=== PATIENT | male | born 1940 | race Caucasian/White ===

== ENCOUNTER 2023-11-08 13:34 | Outpatient (RCR) | payer MEDICARE, OTHER, SELFPAY | END 2023-11-08 23:59 | disposition home or self-care (01) | LOC: RST 13:34 | PROVIDERS: ATTENDING PHYSICIAN Psychiatry & Neurology Neurology | DX: G31.01 Pick's disease (principal); F02.80 Dementia in other diseases classified elsewhere, unspecified severity, without behavioral disturbance, psychotic disturbance, mood disturbance, and anxiety; R47.01 Aphasia; R41.89 Other symptoms and signs involving cognitive functions and awareness | CPT/HCPCS: 92507; 92523; 96125; 97129; 97130 ==

== ENCOUNTER 2023-12-06 10:47 | Outpatient (RCR) | payer MEDICARE, OTHER, SELFPAY | END 2023-12-06 23:59 | disposition home or self-care (01) | LOC: RST 10:47 | PROVIDERS: ATTENDING PHYSICIAN Psychiatry & Neurology Neurology | DX: G31.01 Pick's disease (principal); F02.80 Dementia in other diseases classified elsewhere, unspecified severity, without behavioral disturbance, psychotic disturbance, mood disturbance, and anxiety; R41.89 Other symptoms and signs involving cognitive functions and awareness; R47.01 Aphasia | CPT/HCPCS: 92507; 97129; 97130 ==

== ENCOUNTER 2024-01-03 13:50 | Outpatient (RCR) | payer MEDICARE, OTHER, SELFPAY | END 2024-01-08 08:09 | disposition home or self-care (01) | LOC: RST 13:50 | PROVIDERS: ATTENDING PHYSICIAN Psychiatry & Neurology Neurology | DX: G31.01 Pick's disease (principal); F02.80 Dementia in other diseases classified elsewhere, unspecified severity, without behavioral disturbance, psychotic disturbance, mood disturbance, and anxiety; R41.89 Other symptoms and signs involving cognitive functions and awareness; R47.01 Aphasia | CPT/HCPCS: 92507; 97129; 97130 ==

== ENCOUNTER 2024-10-07 14:54 | Emergency (ER) | payer MEDICARE, OTHER, SELFPAY ==
[2024-10-07 15:28] VITALS: BP 119/49
[2024-10-07 16:05] LABS: % Basophils 0.2 % (0-2); % Eosinophils 0.5 % (0-6); % Immature Granulocytes 0.2 % (0-0.5); % Lymphocytes 19.4 % (20.5-51.1); % Monocytes 18.1 % (1.7-9.3); % Neutrophils 61.6 % (42.2-75.2); Absolute Lymphocytes 1.2 10^3/uL (1.2-3.4); Absolute Monocytes 1.1 10^3/uL (0.1-0.6); Absolute Neutrophils 3.8 10^3/uL (1.4-6.5); Hematocrit 39.8 % (39.0-52.0); Mean Corp Hgb Conc. 32.7 g/dL (33.0-37.0); Mean Corpuscular Hgb 29.3 pg (27.0-31.0); Mean Corpuscular Volume 89.8 fL (80.0-94.0); Mean Platelet Volume 11.5 fL (7.4-10.4); Nucleated Red Blood Cells % 0 % (-); Platelet Count 190 10^3/uL (130-400); Red Blood Cell Count 4.43 10^6/uL (4.70-6.10); Red Cell Dist. Width 13.6 % (11.5-14.5); White Blood Cell Count 6.2 10^3/uL (4.8-10.8)
[2024-10-07 16:17] LABS: ALT (SGPT) 16 U/L (0-50); AST (SGOT) 18 U/L (17-59); Albumin 4.4 g/dl (3.5-5.0); Alkaline Phosphatase 83 U/L (38-126); Blood Urea Nitrogen 16 mg/dl (9-20); Calcium 9.1 mg/dl (8.4-10.2); Carbon Dioxide 27 mmol/L (22-30); Chloride 102 mmol/L (98-107); Glucose 125 mg/dl (70-99); Potassium 4.7 mmol/L (3.5-5.1); Sodium 138 mmol/L (135-145); Total Bilirubin 0.6 mg/dl (0.2-1.3); Total Protein 6.4 g/dl (6.3-8.2); eGFR > 60.00
[2024-10-07 16:28] LABS: Troponin I < 0.012 ng/ml
[2024-10-07 17:58] VITALS: BP 141/61
[2024-10-07 18:35] VITALS: BP 149/110
[2024-10-07 18:36] VITALS: BMI 21.8
[2024-10-07 18:53] VITALS: BP 149/110
[2024-10-07 19:15] LABS: Troponin I < 0.012 ng/ml
--- NOTE | 2024-10-07 19:24 | ED.GENMED ---
History of Present Illness
General
Chief Complaint: Chest Pain
Time Seen by Provider: 10/07/24 18:29
History of Present Illness
History of Present Illness:
84-year-old male with history of dementia, CAD status post stents, and GERD presents to the emergency department for evaluation of an acute onset of chest pain that occurred earlier today while riding in the car with his . Pain lasted
approximately 30 minutes before resolving. It apparently was radiating to the back as well. He has not had any symptoms since the emergency department. No reported fevers, chills, sweats, nausea, vomiting, or diarrhea. History is somewhat
challenging due to patient's history of dementia however he denies any reported shortness of breath during the episode.
Past History
Past History
ED Past Medical History: CAD and Hypercholesterolemia
ED Past Surgical History: Cardiac (PTCA with stents)
Social History
Tobacco: Non-smoker
Personal:
Living: with family
Employment: Retired (Pharmacist)
Family History
Family History: CAD; Negative Diabetes
Review of Systems
Review of Systems
Allergies reviewed?: Yes
All Other Systems: ROS reviewed and negative except as documented in HPI and ROS
Phy Exam
Physical Exam
Physical Exam:
GEN: Well appearing, NAD, WDWN
HEENT: Oral mucosa moist, no scleral icterus
Cardiac: Bradycardic, no murmurs, Radial pulses 2+ bilaterally
Lung: No respiratory distress, no tachypnea
MSK: No gross deformity or injuries
Skin: Good color, no pallor or jaundice, no rashes
Neuro: AO x3, moves all extremities freely
Psych: Calm, cooperative
Scores
Heart Score for Chest Pain Patients
STEMI patient?: No
History: Slightly or Non-Suspicious
ECG: Normal
Age: >/= 65 years
Risk Factors: >/= 3 Risk Factors or History of CAD
Troponin: </= Normal Limit
Heart Score for Chest Pain Patients: 4
Heart Score Risk: 20.3% MACE over next 6 weeks
Course
Orders/Labs/Results
Orders:
Orders
10/07/24 14:55
Electrocardiogram (*1) Urgent
Reason for Study: Chest Pain
EKG- Treatment ONCE
10/07/24 15:38
CXR2 [CR Chest - 2 Views ] Urgent
Comment:
Reason For Exam: chest pain
10/07/24 15:46
CMP [Comprehensive Metabolic Panel] Urgent
Complete Blood Count/With Diff Urgent
Troponin I Urgent
10/07/24 18:45
Troponin I Urgent
Abnormal Lab Results
10/07/24
15:46
RBC 4.43 L 10^6/uL
(4.70-6.10)
MCHC 32.7 L g/dL
(33.0-37.0)
MPV 11.5 H fL
(7.4-10.4)
Absolute Monos (auto) 1.1 H 10^3/uL
(0.1-0.6)
Lymphocytes % 19.4 L %
(20.5-51.1)
Monocytes % 18.1 H %
(1.7-9.3)
Glucose 125 H mg/dl
(70-99)
10/07/24 15:46
10/07/24 15:46
Vital Signs
Initial and Last Documented VS:
Initial Vital Signs
Temp Pulse Resp BP Pulse Ox
97.7 F 54 18 119/49 99
10/07/24 15:28 10/07/24 15:28 10/07/24 15:28 10/07/24 15:28 10/07/24 15:28
Last Documented Vital Signs
Temp Pulse Resp BP Pulse Ox
98.5 F 54 13 149/110 98
10/07/24 18:53 10/07/24 18:53 10/07/24 18:53 10/07/24 18:53 10/07/24 18:53
MDM/Problems Addressed
MDM/Problems Addressed:
Patient's workup was unremarkable and he remained pain-free in the emergency department. Initial and delta troponins negative, EKG without ischemic changes. He has a rail filler located at [facility] [address] and he plans to follow-up later this week
feels reasonable
*Critical Care Note
Total Time (30-74mins, 75-104mins- exclusive of procedures): Not Applicable
ED Attending Note
-
Portions of this chart may have been created with voice recognition software.� Occasional wrong word or��sound alike� substitutions may have occurred due to the inherent limitations of voice recognition software.
Discharge Plan
Departure
Patient Disposition: Home (Routine Discharge)
Date of Disposition: 10/07/24
Time of Disposition: 19:26
Patient with high blood pressure during this ER visit?: No
Discharge Problem:
Atypical chest pain
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
Prescriptions:
No Action
multivitamin [Daily Multiple] 1 EACH tablet
1 ea PO DAILY
famotidine 40 MG tablet
40 mg PO BID
niacin [Niaspan Extended-Release] 500 MG tablet extended release 24 hr
500 mg PO DAILY
aspirin [Aspir-Low] 81 MG tablet,delayed release (DR/EC)
325 mg PO DAILY
calcium carbonate [Calcium 600] 600 MG tablet
600 mg PO DAILY
simvastatin 5 MG tablet
5 mg PO DAILY
metoprolol tartrate 25 MG tablet
12.5 mg PO BID
baclofen 10 MG tablet
10 mg PO TID Qty: 30 0RF
Activity Restrictions/Additional Instructions:
See your rail filler as soon as possible for follow up
Return if symptoms reoccur
Interventions
Interventions:
*Risk Screen - Suicide Last Done: 10/07/24 20:16
*General Assessment Last Done: 10/07/24 18:51
*Neglect/Abuse Screening Last Done: 10/07/24 18:51
ED- Fall Risk Assessment Last Done: 10/07/24 18:51
*ED COVID-19 Vaccine History Last Done: 10/07/24 15:28
*Nursing Disposition Last Done: 10/07/24 20:16
ED- Cardiac Assessment Last Done: 10/07/24 18:51
Discharge Date and Time
Discharge Date/Time: 10/07/24 20:17
Print Language: KYRGYZ
== END 2024-10-07 20:17 | disposition home or self-care (01) ==
LOC: EMR 14:54
PROVIDERS: EMERGENCY PHYSICIAN Emergency Medicine; FAMILY PHYSICIAN Internal Medicine; REFERRING PHYSICIAN Internal Medicine Cardiovascular Disease
DX: R07.89 Other chest pain (principal); M54.9 Dorsalgia, unspecified; I25.10 Atherosclerotic heart disease of native coronary artery without angina pectoris; E78.00 Pure hypercholesterolemia, unspecified; F03.90 Unspecified dementia, unspecified severity, without behavioral disturbance, psychotic disturbance, mood disturbance, and anxiety; K21.9 Gastro-esophageal reflux disease without esophagitis; Z95.5 Presence of coronary angioplasty implant and graft; Z79.82 Long term (current) use of aspirin
CPT/HCPCS: 99283; 71046; 80053; 84484; 85025; 93005

== ENCOUNTER → 2024-10-17 11:59 | Outpatient (REF) | payer MEDICARE, OTHER, SELFPAY | LOC: HWRCS 11:59 | PROVIDERS: ATTENDING PHYSICIAN Internal Medicine Cardiovascular Disease; FAMILY PHYSICIAN Internal Medicine | DX: I25.10 Atherosclerotic heart disease of native coronary artery without angina pectoris (principal); Z95.5 Presence of coronary angioplasty implant and graft; R07.9 Chest pain, unspecified | CPT/HCPCS: 78452; 93017; A9500; J2785 ==

== ENCOUNTER 2024-10-28 10:02 | Day surgery (SDC) | payer MEDICARE, OTHER, SELFPAY ==
[2024-10-28] VITALS (13 sets, daily range): BP systolic 107–156; BP diastolic 43–109; BMI 21.3
[2024-10-28 12:29] LABS: ACT-LR - POC 310 Seconds (116-155)
[2024-10-28 14:05] LABS: ACT-LR - POC 306 Seconds (116-155)
[2024-10-28 14:05] LABS: ACT-LR - POC 224 Seconds (116-155)
--- NOTE | 2024-10-28 16:48 | PTCARENOTE ---
Received patient from the laboratory specialist at 1506 after attempted cath right radial and right femoral arteries. Radial band in place on the right wrist, hand is cool and difficult to palpate the radial pulse but easily obtained to verify with the doppler.
Right femoral dressing is dry and intact with a palpable DP pulse. Patient denies any pain or discomfort. Oriented but forgetful and needs reminding of post cath restrictions. The patient's is at the bedside and reinforcing restrictions.
Attempted to remove 3ml of air from the band 2 hours post placement, but had bleeding at the site and air was reinserted. Patient eating dinner with his 's help, HOB elevated 25 degrees as permitted, call omer in reach. SB on the monitor, pulse
ox 97% on RA with a BP of 144/72.
[2024-10-28 17:44] LABS: Hematocrit 39.9 % (39.0-52.0); Hemoglobin 13.4 g/dL (13.0-18.0); Mean Corp Hgb Conc. 33.6 g/dL (33.0-37.0); Mean Corpuscular Hgb 29.1 pg (27.0-31.0); Mean Corpuscular Volume 86.7 fL (80.0-94.0); Mean Platelet Volume 11.1 fL (7.4-10.4); Platelet Count 166 10^3/uL (130-400); Red Cell Dist. Width 13.6 % (11.5-14.5); White Blood Cell Count 6.7 10^3/uL (4.8-10.8)
[2024-10-28 17:55] LABS: APTT 38.4 Sec (23.4-35.0)
--- NOTE | 2024-10-28 17:58 | PTCARENOTE ---
Patient maintained bedrest x 3 hours post femoral access. Needs frequent reminders of post cath restrictions for his right wrist. Able to remove 3ml of air from radial band without any oozing. Patient assisted to the bathroom and voided qs. Bed
alarm placed on the bed for patient safety. Patient's states he walks independently without any devices at home, but will need assistance to avoid any weight bearing on his right wrist. Call omer in reach, alarm activated.
--- NOTE | 2024-10-28 19:46 | ITS.CL.PN ---
Marketing Financial Analyst - Procedure Note
Procedure
Procedure Note:
CARDIAC CATHETERIZATION REPORT
Date of Procedure: 10/28/2024
Referring: Dr. Noah Rachel MD
Indication: anginal chest pain, positive cardiac stress test
PROCEDURE(S)
1. left heart catheterization
2. coronary angiography
3. POBA of mid-RCA
4. PCI with ERIN to proximal/ostial RCA
ACCESS:
1. 6F right radial artery (closure: radial band)
2. 6F right common femoral artery (closure: Angioseal)
CATHETERS
1. 6F JR4
2. 6F JL3.5
3. 6F JR4 guide
4. 6F AL1 guide
MODERATE SEDATION: 90 minutes of moderate sedation was utilized. An independent medical record administrator was present to assist with and help manage the patient's level of consciousness and physiologic status.
ULTRASOUND GUIDED VASCULAR ACCESS (right radial artery): Ultrasound was utilized for vascular access. The vessel was visualized under ultrasound and noted to be patent. An image of the vessel was stored permanently in the patient's medical record.
Under direct ultrasound guidance, vascular access was obtained using a modified Seldinger technique and a 6 Hungarian sheath was placed.
ULTRASOUND GUIDED VASCULAR ACCESS (right common femoral artery): Ultrasound was utilized for vascular access. The vessel was visualized under ultrasound and noted to be patent. An image of the vessel was stored permanently in the patient's medical
record. Under direct ultrasound guidance, vascular access was obtained using a modified Seldinger technique and a 6 Hungarian sheath was placed.
HEMODYNAMIC DATA
LV 117/9 (EDP 10) mmHg
AO 117/56 (mean 77) mmHg
CORONARY ANGIOGRAPHY
Dominance: Right
LM: Large without significant disease
LAD: large vessel giving rise to a several small diagonal branches and wrapping around the apex. There is an 80% focal stenosis in the proximal vessel that is eccentric and best seen in the cranial projections. There are patent stents in the mid
vessel with mild ISR. There is ZAY-3 flow distally.
LCx: Large vessel giving rise to a moderate caliber OM1 and large branching OM2. There is a stent in the proximal aspect of the OM2 with diffuse moderate ISR. There is otherwise diffuse moderate disease in all branch vessels but ZAY III flow
distally.
RCA: Large tortuous and calcified vessel giving rise to several small and one moderate caliber RPL branches. There is a 99% occlusion in the mid vessel with ZAY II flow distally. The RPDA may be stump occluded as there is no branch clearly
supplying the inferior septum. However, there are no right to right or left to right collaterals seen.
PCI with POBA of mid-RCA and ERIN to proximal RCA
In the setting of recent episodes of chest pain and positive stress test in the RCA territory with subtotal occlusion of the mid RCA and ZAY II flow, decision was made to proceed with PCI of the mid RCA. Heparin was given to achieve ACT greater
than 300. The RCA was engaged with a 6 Hungarian JR4 guide catheter and a Runthrough wire placed with some difficulty in the mid to distal RCA. With significant difficulty and use of a 6F Guideliner and balloon assisted tracking and inchworming, a
2.0x12 semicompliant balloon was able to cross the lesion and initial lesion preparation was performed with serial inflation. There was noted to be improved distal flow. Further lesion preparation was performed with a 3.0x12 mm semicompliant
balloon with full expansion. A stent was unable to be delivered to the mid RCA despite use of deep GuideLiner positioning. A Whisper wire was used to achieve more distal wire positioning, however, this did not allow for better distal delivery of
equipment due to poor guide catheter support. An AL0.75 guide was attempted, however, this did not provide coaxial engagement and led to significant pressure dampening. A hockey-stick guide would have been preferable given the vessel architecture
but was not available. Given that the intervention did not appear possible with the available equipment from the right radial artery, the decision was made to transition to groin access. 6 Hungarian right common femoral access was obtained with
ultrasound guidance and the right coronary artery engaged again with a JR4 guide catheter given that this was anticipated to provide better support with more greater curvature bias from the groin. A Runthrough wire was again advanced to the distal
RCA. On angiography, there appeared to be a small dissection flap in the proximal aspect of the vessel with contrast staining noted. Given concern for propagation of this dissection, the decision was made to stent the proximal to ostial RCA prior
to proceeding with further intervention. A 3.5 x 15 mm [place] drug-eluting stent was delivered and deployed at 16 trey with careful ostial placement followed by flaring to high-pressure with the stent delivery balloon. After this,
significant attempts were again made with both the JR4 guide catheter and the AL0.75 guide catheter with the use of a Guideliner, leanna wire, and balloon assisted tracking techniques, but ultimately without successful delivery of a stent to the mid
RCA. This was felt to be due to the highly tortuous and calcified nature of the vessel, compounded by inadequate guide support. Given time, contrast, and radiation usage, the decision was made to conclude the case, with plan to bring the patient
back for staged PCI to the mid RCA with 8 Hungarian guide support. Final angiography demonstrated significant angiographic improvement of the lesion site with now 50% residual stenosis improved from 99% initially and improvement of flow from ZAY II
to ZAY III distally. The patient was loaded on the table with 600 mg of Plavix. The right groin was closed with a 6 Hungarian Angio-Seal with hemostasis achieved. The patient tolerated the procedure well and was taken to the cath recovery unit in
stable condition and family updated. The patient will be maintained on triple therapy in the interim and monitored overnight.
RADIATION: dose 1570 mGy; DAP 111 Gy*cm2; fluoroscopy time 61 min
CONCLUSIONS
1. Two-vessel obstructive coronary artery disease as described.
2. Normal LVEDP and no aortic stenosis.
3. PCI of the mid RCA with POBA up to a 3.0 mm semicompliant balloon. Inability to deliver a stent due to inadequate guide support in the setting of tortuous and calcified vessel architecture despite transition to femoral access, use of multiple
guides, and Guideliner support.
4. Case complicated by proximal RCA dissection, likely secondary to significant guide manipulation, treated with a 3.5 x 15 mm stent with excellent result.
RECOMMENDATIONS
1. Monitor overnight on heparin, ASA, and Plavix.
2. Plan for staged PCI to the mid RCA with large bore guide support and possible concomitant PCI to proximal LAD in same setting. Patient will be maintained on triple therapy with ASA, Plavix, and Eliquis until staged intervention with plan to
then narrow to Plavix and Eliquis only.
Copy to: Dr. Noah Rachel MD (patrol inspector); Dr. Yajaira Ravi MD (PCP)
Signed: Fernando Ortega MD, PhD
[2024-10-28] MEDS: LOPRESSOR 12.5 MG PO (20:12)
[2024-10-28 20:26] LABS: Hemoglobin 12.9 g/dL (13.0-18.0); Mean Corp Hgb Conc. 33.1 g/dL (33.0-37.0); Mean Corpuscular Hgb 29.3 pg (27.0-31.0); Mean Corpuscular Volume 88.6 fL (80.0-94.0); Mean Platelet Volume 11.4 fL (7.4-10.4); Platelet Count 162 10^3/uL (130-400); Red Cell Dist. Width 13.6 % (11.5-14.5); White Blood Cell Count 7.2 10^3/uL (4.8-10.8)
[2024-10-28] MEDS: NAMENDA 5 MG PO (21:14)
[2024-10-28] MEDS: CRESTOR 10 MG PO (21:14)
[2024-10-28] MEDS: AMBIEN 5 MG PO (21:14)
[2024-10-28] MEDS: HEPARIN 25000 UNITS/250 ML IV (21:19)
--- NOTE | 2024-10-28 22:01 | PTCARENOTE ---
Pt NSR on monitor. denies pain or any discomfort. Rt wrist and rt groin post cath sites clean and intact, palpable pulses. OOB with x 1 assist. Heparin gtt per order. Safety measures in place.
[2024-10-29 04:19] VITALS: BP 105/72
--- NOTE | 2024-10-29 04:43 | DOWNTIME ---
There was a [employer] Client Message Clerk Downtime on 10/29/2024 from 0100 to 10/30/2023 at 0420 . Downtime documentation of patient's care, including medication administrations, has been reconciled in the electronic record per guidelines. Refer to the
patient's paper chart under the miscellaneous tab to see printed paper medication records and downtime forms.
--- NOTE | 2024-10-29 04:50 | DOWNTIME ---
There was a [email or web address] Client Dramatic Director Downtime on 10/29/2024 from 0100 to 10/30/2023 at 0420 . Downtime documentation of patient's care, including medication administrations, has been reconciled in the electronic record per guidelines. Refer to the
patient's paper chart under the miscellaneous tab to see printed paper medication records and downtime forms.
[2024-10-29 05:12] LABS: Hematocrit 35.1 % (39.0-52.0); Hemoglobin 11.7 g/dL (13.0-18.0); Mean Corp Hgb Conc. 33.3 g/dL (33.0-37.0); Mean Corpuscular Hgb 28.7 pg (27.0-31.0); Mean Corpuscular Volume 86.2 fL (80.0-94.0); Mean Platelet Volume 11.7 fL (7.4-10.4); Platelet Count 168 10^3/uL (130-400); Red Blood Cell Count 4.07 10^6/uL (4.70-6.10); Red Cell Dist. Width 13.6 % (11.5-14.5); White Blood Cell Count 7.1 10^3/uL (4.8-10.8)
[2024-10-29 05:13] LABS: APTT 39.3 Sec (23.4-35.0)
[2024-10-29 05:33] LABS: Blood Urea Nitrogen 13 mg/dl (9-20); Calcium 8.8 mg/dl (8.4-10.2); Carbon Dioxide 24 mmol/L (22-30); Chloride 103 mmol/L (98-107); Estimated Creatinine Clearance 59 ml/min; Glucose 89 mg/dl (70-99); HDL Cholesterol 38 mg/dl; LDL Cholesterol, Calculated 21 mg/dl; Magnesium 1.6 mg/dl (1.6-2.3); Potassium 4.1 mmol/L (3.5-5.1); Sodium 136 mmol/L (135-145); Total Cholesterol 80 mg/dl (50-199); Triglyceride 105 mg/dl (10-149); Very Low Density Lipoprotein 21 mg/dl (0-30); eGFR > 60.00
[2024-10-29 06:54] VITALS: BP 105/57
--- NOTE | 2024-10-29 07:44 | PTCARENOTE ---
Received patient this morning AAO, IV heparin infusing at 900 units/hr. Right wrist dressing and right groin dressings are dry and intact with no signs of hematoma and pulses are palpable. Breakfast ordered by his last night, patient is anxious
to go home. Instructed to call for assistance when he wants to get oob, bed alarm in place, call omer in reach.
[2024-10-29] MEDS: ZYRTEC 10 MG PO (08:42)
[2024-10-29] MEDS: LOPRESSOR 12.5 MG PO (08:42)
[2024-10-29] MEDS: PLAVIX 75 MG PO (08:42)
[2024-10-29] MEDS: PROTONIX 40 MG PO (08:42)
[2024-10-29] MEDS: NAMENDA 10 MG PO (08:42)
[2024-10-29] MEDS: CELEXA 20 MG PO (08:42)
[2024-10-29] MEDS: LOW STRENGTH ASPIRIN 81 MG PO (08:42)
--- NOTE | 2024-10-29 08:59 | W.PN.CARDCBS ---
Addendum entered and electronically signed by Danna Mares MD 10/29/24 10:18:
I saw and examined the patient.
The MOLASSES AND CARAMEL OPERATOR's note was reviewed and I agree with the note.
Comment: he reports he has no heart issue. He is worried for a chronic runny nose, hearing loss, and gynecomastia. His RFA site is soft and well healed no hematoma. His lungs are CTA, rrr no m/r/g. LE without C/c/e. Plan will be to return for
planned intervention. I encouraged him to followup with PCP regarding chronic noncardiac complaints. Given his OBS, his d/c instructions were reviewed with by Rose Camposmahin BIRCH.
Original Note:
Today's Communication / Plan
-
post POBA mid RCA c/b prox RCA dissection/PCI
residual mid RCA stenosis and prox LAD, return next week for attempted PCI mid RCA/LAD
triples for 1 week then stop Eliquis next Sun, DAPT till after next intervention
stable for d/c home today
Impression / Plan
-
PCP: Yajaira Ravi MD
CDY: Noah Rachel MD
84 yo WM h/o CAD/CT/PCI, Afib, HTN, HLD, and dementia who has been having chest pain with abnormal NST who presents for [facility] yesterday.
Impression/Plan:
#CAD prior PCI LAD/OM - post cath with 2V CAD (RCA/LAD) post POBA mid RCA unable to stent d/t inadequate guide support c/b prox RCA dissection post PCI with a 3.5 x 15 mm stent
tele SB, denies cp, groin/rad site stable
Stop heparin drip and resume Eliquis this am for 1 week with DAPT
Plan will be to return 11/07 for PCI mid RCA and possible prox LAD
continue triple therapy till Sun then ASA/Plavix till Sunday, plan will be Plavix/Eliquis only after next intervention
Lipids look great, despite low dosing rosuvastatin, continue 10mg q48hr
plan for d/c home today, will call with with plan
#Paroxysmal Atrial fibrillation - remains in SR, resume Eliquis this am, continue low dose metoprolol
#Dementia - continue memantine
#HTN
#HLD
#GERD
#NSVT
#former smoker
10/28/24 CONCLUSIONS
1. Two-vessel obstructive coronary artery disease as described.
2. Normal LVEDP and no aortic stenosis.
3. PCI of the mid RCA with POBA up to a 3.0 mm semicompliant balloon. Inability to deliver a stent due to inadequate guide support in the setting of tortuous and calcified vessel architecture despite transition to femoral access, use of multiple
guides, and Guideliner support.
4. Case complicated by proximal RCA dissection, likely secondary to significant guide manipulation, treated with a 3.5 x 15 mm stent with excellent result.
Progress Note - Literacy Education Professor
Subjective
Date of Service: October 29, 2024
denies cp, sob
Objective
Labs:
10/29/24 04:30
10/29/24 04:30
Labs
Hgb 11.7 g/dL (13.0-18.0) L 10/29/24 04:30
Hct 35.1 % (39.0-52.0) L 10/29/24 04:30
Plt Count 168 10^3/uL (130-400) 10/29/24 04:30
APTT 39.3 Sec (23.4-35.0) H 10/29/24 04:30
Sodium 136 mmol/L (135-145) 10/29/24 04:30
Potassium 4.1 mmol/L (3.5-5.1) 10/29/24 04:30
BUN 13 mg/dl (9-20) 10/29/24 04:30
Creatinine 0.8 mg/dL (0.7-1.3) 10/29/24 04:30
Glucose 89 mg/dl (70-99) 10/29/24 04:30
Vital Signs and I&O:
Vital Signs
Temp Pulse Resp BP Pulse Ox
98.4 F 54 20 105/57 92
10/29/24 06:54 10/29/24 07:15 10/29/24 06:54 10/29/24 06:54 10/29/24 06:54
Vital Signs
Temp Pulse Resp BP Pulse Ox
98.4 F 54 20 105/57 92
10/29/24 06:54 10/29/24 07:15 10/29/24 06:54 10/29/24 06:54 10/29/24 06:54
Intake & Output
10/27/24 10/28/24 10/29/24 10/30/24
06:59 06:59 06:59 06:59
Intake Total 1340 / 1340
Balance 1340 / 1340
Physical Exam
Physical Exam
NAD, AOx2
S1, S2, RRR
CTAB, non labored, no wheeze
SNTND bsx4
R rad site c/d/i no HT, good radial pulse
R fem site c/d/i no HT, soft
[2024-10-29] MEDS: ELIQUIS 2.5 MG PO (10:07)
--- NOTE | 2024-10-29 10:20 | CM ---
Chart reviewed. Patient is independent of ADLS, lives with his in a [address], 1 MICHELLE, 0 DME. Plan is for the patient to return home. CM to follow
[2024-10-29 11:23] VITALS: BP 96/64
[2024-10-29 11:24] VITALS: BP 96/64
--- NOTE | 2024-10-29 11:39 | PTCARENOTE ---
IV heparin discontinued, patient given a dose of eliquis and is ok for discharge. Reviewed discharge instructions, follow up appointments, new medications and labs needed with the who is the patient's primary caregiver. Patient discharged home
with plans for PCI next week.
--- NOTE | 2024-10-29 12:17 | W.DS.TRANS ---
DC Summary - [facility]
-
Discharge Instructions:
Discharge Diagnosis/Procedures Balloon angioplasty to Right Coronary artery
complicated by dissection and stent to ostial
RCA x 1 ERIN
Diet Low Cholesterol
Driving Restrictions No driving for 24 hours
Blood Work Check BMP and CBC on 11/05
Other Services Cardiac Rehab
Instructions:
Stand-Alone Forms: DC Instructions- Cath/EP Lab
Changes to Home Medications: Yes
Discharge Medications:
DC Medications w/original date entered in [employer]
metoprolol tartrate 25 mg tablet 12.5 mg PO BID 08/06/12
apixaban 2.5 mg tablet (Eliquis) 2.5 mg PO BID 10/28/24
aspirin 81 mg chewable tablet 81 mg PO DAILY 10/28/24
cetirizine 10 mg tablet 10 mg PO DAILY 10/28/24
cholecalciferol (vitamin D3) 50 mcg (2,000 unit) tablet 50 mcg PO HS 10/28/24
citalopram 20 mg tablet 20 mg PO DAILY 10/28/24
coffee extract 100 mg-phosphatidyl serine 100 mg capsule (Neuriva Original) 1 cap PO DAILY 10/28/24
docusate sodium 100 mg capsule (Colace) 100 mg PO DAILY PRN CONSTIPATION 10/28/24
eszopiclone 1 mg tablet 1 mg PO HS 10/28/24
ipratropium bromide 42 mcg (0.06 %) nasal spray 2 spray intranasal TID 10/28/24
melatonin 5 mg tablet 5 mg PO HS PRN INSOMNIA 10/28/24
memantine 5 mg tablet 5 mg PO HS 10/28/24
memantine 5 mg tablet 10 mg PO DAILY 10/28/24
eiiaoaoawyjp-sjugjffn-mbssif tablet 1 tab PO DAILY 10/28/24
pantoprazole 40 mg tablet,delayed release 40 mg PO DAILY 10/28/24
rosuvastatin 10 mg tablet 10 mg PO Q48H@2200 10/28/24
clopidogrel 75 mg tablet 75 mg PO DAILY #90 tabs 10/29/24
Home Medication Changes
new to plavix
Pending Results: No
[2024-10-30 13:48] LABS: ACT-LR - POC > 397 Seconds (116-155)
== END 2024-10-29 15:13 | disposition home or self-care (01) ==
LOC: CATH 10:02
PROVIDERS: Nurse Practitioner Adult Health; ATTENDING PHYSICIAN Student in an Organized Health Care Education/Training Program; FAMILY PHYSICIAN Internal Medicine; OTHER PHYSICIAN Internal Medicine Cardiovascular Disease
DX: I25.119 Atherosclerotic heart disease of native coronary artery with unspecified angina pectoris (principal); I25.42 Coronary artery dissection; Z79.82 Long term (current) use of aspirin; Z79.01 Long term (current) use of anticoagulants; Z79.02 Long term (current) use of antithrombotics/antiplatelets; Z79.899 Other long term (current) drug therapy; I48.0 Paroxysmal atrial fibrillation; I10 Essential (primary) hypertension; E78.5 Hyperlipidemia, unspecified; K21.9 Gastro-esophageal reflux disease without esophagitis; I47.20 Ventricular tachycardia, unspecified; F03.90 Unspecified dementia, unspecified severity, without behavioral disturbance, psychotic disturbance, mood disturbance, and anxiety; Z87.891 Personal history of nicotine dependence; Z95.5 Presence of coronary angioplasty implant and graft
CPT/HCPCS: 76937; 80048; 80061; 83735; 85027; 85730; 93005; 93458; 99152; 99153; C1725; C1760; C1874; C1887; C1894; C9600; Q9967

== ENCOUNTER 2024-11-07 06:36 | Day surgery (SDC) | payer MEDICARE, OTHER, SELFPAY ==
[2024-11-07] VITALS (12 sets, daily range): BP systolic 103–130; BP diastolic 49–82; BMI 21.6
[2024-11-07] MEDS: LOW STRENGTH ASPIRIN 81 MG PO (07:25)
[2024-11-07 08:42] LABS: ACT-LR - POC 300 Seconds (116-155)
[2024-11-07 09:22] LABS: ACT-LR - POC 245 Seconds (116-155)
[2024-11-07 09:37] LABS: ACT-LR - POC 368 Seconds (116-155)
[2024-11-07 10:02] LABS: ACT-LR - POC 353 Seconds (116-155)
--- NOTE | 2024-11-07 15:06 | W.PN.UPDATE ---
Update Note
Progress Note Update
84 yo WM s/p PCI RCAx2, LADx1 (same day). He denies cp, sob, gera diet, R fem site c/d/i Perclose, no HT, EKG SB with PAC's. He will resume Eliquis in am and continue triple therapy for 1 week then stop ASA. Cardiac rehab c/s, Activity restrictions
reviewed with pt and . He will f/u Dr. Rachel in 1mo. He is for d/c home after 4p if groin stable and voiding.
--- NOTE | 2024-11-07 15:42 | ITS.CL.PN ---
[facility] - Procedure Note
Procedure
Procedure Note:
CARDIAC CATHETERIZATION REPORT
Date of Procedure: 11/07/2024
Referring: Dr. Noah Rachel MD
Indication: acute coronary syndrome, positive cardiac stress test
PROCEDURE(S)
1. left heart catheterization
2. PCI with ERIN to RCA
3. IVUS RCA
4. PCI with ERIN to LAD
4. IVUS LAD
ACCESS: 8F right femoral artery (closure: Perclose x1)
CATHETERS
1. 7F AR1 guide catheter
2. 6F EBU3.5 guide catheter
MODERATE SEDATION: 90 minutes of moderate sedation was utilized. An independent medical technologist blood bank was present to assist with and help manage the patient's level of consciousness and physiologic status.
ULTRASOUND GUIDED VASCULAR ACCESS (right common femoral artery): Ultrasound was utilized for vascular access. The vessel was visualized under ultrasound and noted to be patent. An image of the vessel was stored permanently in the patient's medical
record. Under direct ultrasound guidance, vascular access was obtained using a modified Seldinger technique and a 8 Scottish sheath was placed.
HEMODYNAMIC DATA
LV 126/9 (EDP 20) mmHg
AO 125/65 (mean 85) mmHg
CORONARY ANGIOGRAPHY: Limited coronary angiography demonstrates anatomy unchanged from prior catheterization. Notably patent ostial RCA stent with severe mid RCA disease and focal high-grade stenosis of the proximal LAD.
RADIATION: dose 1260 mGy; DAP 81 Gy*cm2; fluoroscopy time 36.1 min
IVUS guided PCI to RCA with ERIN
Right common femoral artery access was obtained with ultrasound guidance and an 8 Scottish 45 cm destination sheath placed. Heparin was administered to achieve ACT greater than 300. A 7 Scottish AR-1 guide was engaged in the RCA. A Whisper wire was
placed in the distal RPDA. Using a 6 Scottish guideliner and a 2.0 mm balloon, balloon assisted tracking and inchworming technique was used to deliver the GuideLiner past the area of severe mid RCA stenosis. A 3.5 x 23 mm Xience Skypoint ERIN was
delivered at 16 trey and overlapped proximally with a 3.5x22 mm Charlotte Leland ERIN at 16 trey. The entire stented area was postdilated to high-pressure with a 3.75 mm NC. IVUS was performed demonstrating no distal stent edge dissection, appropriate
sizing, and adequate expansion throughout with MLA was >8 mm�. We then returned our attention to the LAD.
IVUS guided PCI to LAD with ERIN
The left main was engaged with a 6 Scottish EBU3.5 guide catheter. A Runthrough wire was placed in the distal LAD. Initial lesion preparation was performed with a 2.0 mm balloon followed by a 3.0 NC which fully expanded. IVUS was performed which
demonstrated heavy but non-concentric calcification at the lesion site. A 3.5 x 28 mm Xience Skypoint ERIN was delivered and deployed followed by high-pressure NC post-dilation with a 3.75 balloon. There remained a small residual waist at the lesion
site due to extrinsic calcium. MLA on IVUS was >6 mm so decision was made not to perform additional calcium modification. The wire and guide were removed. Left heart catheterization was performed demonstrating LVEDP 20 mmHg and this was used to
guide post-procedure fluid administration. The groin closed with Perclose x1 with excellent hemostasis. The patient was reloaded with 300 mg Plavix.
CONCLUSIONS
1. Successful IVUS-guided PCI to RCA with ERIN (overlapping 3.5x23 and 3.5x22 mm stents post-dilated with a 3.75 mm NC balloon)
2. Successful IVUS-guided PCI to LAD with ERIN (3.5x28 mm stent post-dilated with a 3.75 mm NC balloon)
3. Mildly elevated LVEDP and no aortic stenosis.
RECOMMENDATIONS
1. Triple therapy with ASA/Plavix/Eliquis for 1 week followed by Plavix/Eliquis for 6 months
2. Aggressive secondary prevention of CAD
3. Cardiac rehab
Copy to: Dr. Noah Rachel MD (np); Dr. Yajaira Ravi MD (PCP)
Signed: Fernando Ortega MD, PhD
== END 2024-11-07 16:09 | disposition home or self-care (01) ==
LOC: CATH 06:36
PROVIDERS: ATTENDING PHYSICIAN Student in an Organized Health Care Education/Training Program; FAMILY PHYSICIAN Internal Medicine; OTHER PHYSICIAN Internal Medicine Cardiovascular Disease
DX: I25.10 Atherosclerotic heart disease of native coronary artery without angina pectoris (principal); Z79.82 Long term (current) use of aspirin; Z79.01 Long term (current) use of anticoagulants; Z79.899 Other long term (current) drug therapy; Z79.02 Long term (current) use of antithrombotics/antiplatelets; Z87.891 Personal history of nicotine dependence; K21.9 Gastro-esophageal reflux disease without esophagitis; I25.2 Old myocardial infarction; E78.5 Hyperlipidemia, unspecified; I48.91 Unspecified atrial fibrillation
CPT/HCPCS: 92978; 99152; 99153; 76937; 85347; 92979; 93005; C1725; C1753; C1760; C1874; C1887; C1894; C9600; Q9967